=== PATIENT | female | born 1970 | race Caucasian/White ===

== ENCOUNTER 2022-02-14 12:07 | Outpatient (CLI) | payer BC, OTHER ==
[2022-02-14 12:33] LABS: ALT (SGPT) 55 U/L (8-55); AST (SGOT) 40 U/L (5-34); Albumin 4.5 g/dL (3.5-5.0); Alkaline Phosphatase 100 U/L (40-110); Anion Gap 16 mmol/L (10-20); BUN (Urea Nitrogen) 12 mg/dL (9.8-20.1); Bilirubin, Total 0.6 mg/dL (0.2-1.2); Calc. Creatinine Clearance 0 mL/min (70-130); Calcium 9.7 mg/dL (7.8-10.44); Carbon Dioxide 27 mmol/L (22-29); Cardiac Risk 3.4 (Less than 4.5); Chloride 105 mmol/L (98-107); Cholesterol 141 mg/dl (< 200 Desired); Estimated GFR 96; Globulin 3.1 g/dL (2.4-3.5); Glucose 89 mg/dL (70-105); HDL Cholesterol 42 mg/dL (>60 Neg Risk); LDL Cholesterol, Calculated 76 mg/dL; Potassium 4.9 mmol/L (3.5-5.1); Protein, Total 7.6 g/dL (6.0-8.3); Sodium 143 mmol/L (136-145); Triglycerides 113 mg/dL (Less than 150)
[2022-02-14 13:14] LABS: Thyroid Stimulating Hormone 0.4579 uIU/mL (0.35-4.94)
[2022-02-14 16:57] LABS: HIV (1/2) Antibody/Antigen Non-Reactive (NonReactive); HIV 1/2 INDEX 0.11 S/CO (<1.00); Vitamin D, 25 Hydroxy 23.3 ng/ml (> 30.0)
== END 2022-02-14 12:08 | disposition home or self-care (01) ==
LOC: MADLABBHPM 12:07 → MADLAB 12:08
PROVIDERS: ATTEND Family Medicine
DX: Z01.419 Encounter for gynecological examination (general) (routine) without abnormal findings (principal); Z11.4 Encounter for screening for human immunodeficiency virus [HIV]; E89.40 Asymptomatic postprocedural ovarian failure; F32.9 Major depressive disorder, single episode, unspecified
CPT/HCPCS: 80053; 80061; 82306; 84439; 84443; 84481; 87389

== ENCOUNTER 2022-05-27 09:14 | Emergency (ER) | payer BC ==
[2022-05-27] MEDS ORDERED: Erythromycin Base 0.5% Ophth Oint 3.5 gm Tube ONE (10:14)
== END 2022-05-27 10:22 | disposition home or self-care (01) ==
LOC: MADERS 09:14
DX: H10.9 Unspecified conjunctivitis (principal); F17.210 Nicotine dependence, cigarettes, uncomplicated
CPT/HCPCS: 99282